=== PATIENT | male | born 1960 | race Caucasian/White ===

== ENCOUNTER 2016-08-30 09:29 | Emergency (ER) | payer OTHER ==
[~2016-08-30] VITALS: Ht 172.7 cm; Wt 102.5 kg
[~2016-08-30 09:29] MED LIST: ADVIL,NUPRIN,M200 MG PO; ASPIR 8181 M1 PO; CO Q-1010 MG PO; GARCINIA CAMBO1 EACH PO; LIPITOR10 MG PO; LISINOPRIL20 MG PO
[2016-08-30 11:29] LABS: HEMATOCRIT 40.7 % (38.0-50.0); MCH 29.5 PG (29.0-34.0); MCHC 32.2 G/DL (30.0-36.0); MCV 91.7 FL (86-99); MEAN PLAT.VOLUME 10.4 uM^3 (9.0-12.4); NRBC (%) 0.9 /100 WBC (0-0); PLATELET COUNT 239 K/uL (156-360); RBC DIS.WIDTH-CV 17.6 % (11.8-14.6); RBC DIS.WIDTH-SD 58.6 % (39-53); RED BLOOD COUNT 4.44 M/uL (4.00-5.50)
[2016-08-30 11:30] LABS: INTER. NORMALIZED RATIO 1.2; PROTHROMBIN TIME 11.8 (9.2-11.2); PTT 30.6 (25-32)
[2016-08-30 11:31] LABS: CHLORIDE 107 mEq/L (99-109); POTASSIUM 4.4 mEq/L (3.7-5.4); WHITE BLOOD COUNT 147.4 K/uL (4.1-10.2)
[2016-08-30 11:32] LABS: SODIUM 141 mEq/L (136-147)
[2016-08-30 11:33] LABS: GLUCOSE 101 mg/dL (70-99)
[2016-08-30 11:35] LABS: ANION GAP 11 MEQ/L (2-14)
[2016-08-30 11:37] LABS: GFR ESTIMATE (CALCULATED) > 59 mL/min/
[2016-08-30 11:38] LABS: UREA NITROGEN (BUN) 29 mg/dL (9-23)
[2016-08-30 13:46] LABS: ABS NEUTROPHIL COUNT 94.3; ANISOCYTOSIS 2+; ATYPICAL LYMPHOCYTE 0.5 %; EOSINOPHIL ABS CT 0.7; EOSINOPHILS 0.5 % (0-5.0); INSTRUMENT ABS NEUTROPHIL CT 82.7 K/uL; MACROCYTES 1+; MICROCYTOSIS 1+; MYELOCYTES 7.5 %; PLAT.SUFFICIENCY ADEQUATE
[2016-08-30 14:09] VITALS: BP 140/70
== END 2016-08-30 14:10 | disposition home or self-care (01) ==
LOC: EME 09:29
PROVIDERS: Emergency Medicine
DX: C95.90 Leukemia, unspecified not having achieved remission (principal); R23.3 Spontaneous ecchymoses; R06.00 Dyspnea, unspecified; I10 Essential (primary) hypertension; E78.5 Hyperlipidemia, unspecified
CPT/HCPCS: 80048; 85007; 85025; 85060; 85610; 85730; 99281; 99285

== ENCOUNTER → 2016-09-07 | Outpatient (CLI) | payer OTHER ==
[~2016-09-07] MED LIST changes: +DAILY VALUE1 EACH PO; +KRILL OIL 3001 EACH PO
[2016-09-07 08:26] LABS: HEMATOCRIT 41.1 % (38.0-50.0); MCH 29.6 PG (29.0-34.0); MCHC 32.4 G/DL (30.0-36.0); MCV 91.3 FL (86-99); MEAN PLAT.VOLUME 10.8 uM^3 (9.0-12.4); NRBC (%) 0.4 /100 WBC (0-0); PLATELET COUNT 237 K/uL (156-360); RBC DIS.WIDTH-CV 17.3 % (11.8-14.6); RBC DIS.WIDTH-SD 57.9 % (39-53)
[2016-09-07 08:30] LABS: WHITE BLOOD COUNT 139.3 K/uL (4.1-10.2)
[2016-09-07 09:16] LABS: ABS NEUTROPHIL COUNT 95.1; ANISOCYTOSIS 1+; ATYPICAL LYMPHOCYTE 0.8 %; BAND NEUTROPHILS 11.1 % (0-8.0); BASOPHILS 5.4 %; EOSINOPHIL ABS CT 1.1; EOSINOPHILS 0.8 % (0-5.0); INSTRUMENT ABS NEUTROPHIL CT 79.7 K/uL; LYMPHOCYTES 4.9 % (15.0-45.0); METAMYELOCYTES 3.3 %; MICROCYTOSIS 1+; MYELOCYTES 8.7 %; PLAT.SUFFICIENCY ADEQUATE; SEG.NEUTROPHILS 57.2 % (46.0-76.0); SMUDGE CELLS 4.5
[2016-09-10 10:13] LABS: Flow Number of Markers 22 (()); Flow Spec Viability 98 % (()); Flow Specimen Type BONE MARROW (())
== END | disposition home or self-care (01) ==
LOC: OPR 07:21 → EDSTATUS 08:00
PROVIDERS: Internal Medicine Hematology & Oncology
DX: D72.829 Elevated white blood cell count, unspecified (principal); I10 Essential (primary) hypertension; Z79.82 Long term (current) use of aspirin
CPT/HCPCS: 77012; 85025; 85999; 88184 90; 88185 90; 88189 90; J3010